=== PATIENT | female | born 1975 | race Two or more races ===

== ENCOUNTER 2018-06-20 20:19 | Emergency (ER) | payer MEDICAID ==
[~2018-06-20] VITALS: Ht 154.9 cm; Wt 72.1 kg
[2018-06-20 20:30] VITALS: BP 124/70
[2018-06-20] MEDS ORDERED: LIDOCAINE /MPF 1% VIAL 5 ML VIAL ONE (20:44)
[2018-06-20] MEDS ORDERED: LIDOCAINE 2% 20 ML MDV ONE (20:45)
[2018-06-20] MEDS ORDERED: HYDROCODONE/APAP 10/325MG 1 EA TABLET ONE (20:55)
[2018-06-20] MEDS ORDERED: IBUPROFEN 600 MG TABLET PO ONE ×2 (20:55→21:00)
[2018-06-20] MEDS ORDERED: ONDANSETRON 4 MG TAB.RAPDIS ONE (20:55)
[2018-06-20] MEDS ORDERED: HYDROCODONE/APAP 10/325MG 1 EA TABLET PO ONE (21:00)
[2018-06-20] MEDS ORDERED: ONDANSETRON 4 MG TAB.RAPDIS SL ONE (21:00)
[2018-06-20] MEDS ORDERED: LIDOCAINE 1% INJ 50 ML MDV IJ ONE ×2 (21:00→21:12)
--- NOTE | 2018-06-20 22:08 | NUR ---
Patient discharged to home in stable condition. Written and verbal after care instructions given. Patient verbalizes understanding of instruction.
== END 2018-06-20 22:09 | disposition home or self-care (01) ==
LOC: ER 20:21
DX: L60.0 Ingrowing nail (principal); L03.115 Cellulitis of right lower limb
CPT/HCPCS: 11765; 99284; A4606; A6402; J3490 ×3; Q0162; Z7610

== ENCOUNTER 2018-06-22 20:49 | Emergency (ER) | payer MEDICAID ==
[~2018-06-22] VITALS: Ht 152.4 cm; Wt 72.1 kg
[2018-06-22 22:19] VITALS: BP 132/92
== END 2018-06-22 22:57 | disposition home or self-care (01) ==
LOC: ER 20:51
DX: L03.031 Cellulitis of right toe (principal)
CPT/HCPCS: 99282; A4606 ×2; Z7610 ×2; Z7502

== ENCOUNTER 2019-04-10 22:45 | Emergency (ER) | payer MEDICAID ==
[~2019-04-10] VITALS: Ht 154.9 cm; Wt 72.6 kg
[2019-04-10 23:03] VITALS: BP 132/99
== END 2019-04-10 23:55 | disposition home or self-care (01) ==
LOC: ER 22:52
DX: L60.0 Ingrowing nail (principal)

== ENCOUNTER 2019-04-16 21:32 | Emergency (ER) | payer MEDICAID ==
[~2019-04-16] VITALS: Ht 154.9 cm; Wt 72.6 kg
--- NOTE | 2019-04-16 23:15 | NUR ---
PT PRESENTED TO THE ER WITH A C/O LEFT FOOT GREAT TOE INJURY/PAIN. PT WAS SEEN THE OTHER DAY AND IS ON ANTIBIOTICS, BUT THE PAIN IS WORSE AND PT IS UNABLE TO BEAR THE PAIN. PT AMBULATED TO ER 13 WITH A SLOW STEADY GAIT.
[2019-04-16] MEDS ORDERED: LIDOCAINE HCL/MPF 1% 30 ML VIAL IJ ONE (23:57)
[2019-04-17] MEDS ORDERED: LIDOCAINE HCL/PF 1% 30 ML VIAL TP ONE
--- NOTE | 2019-04-17 01:20 | NUR ---
TOENAIL REMOVAL IN PROGRESS AT THE BEDSIDE.
--- NOTE | 2019-04-17 02:15 | NUR ---
GREAT TOE WRAPPED WITH NON ADHERENT DRSG, KERLEX, AND BURN NET.
--- NOTE | 2019-04-17 02:30 | NUR ---
Patient discharged to home in stable condition. Written and verbal after care instructions given. Patient verbalizes understanding of instruction. PT WAS TOLD TO F/U WITH THE BLANKER PRESS OPERATOR FOR THE REMOVAL OF THE COMPLETE TOENAIL.
--- NOTE | 2019-04-17 02:42 | NUR ---
PT AMBULATED OUT WITH GRIPPER SOCKS ON.
[2019-04-17 02:43] VITALS: BP 128/71
== END 2019-04-17 02:38 | disposition home or self-care (01) ==
LOC: ER 21:34
DX: L60.0 Ingrowing nail (principal); B35.1 Tinea unguium
CPT/HCPCS: 11730; 99283; A6402; J3490

== ENCOUNTER 2019-08-27 22:52 | Emergency (ER) | payer MEDICAID ==
[~2019-08-27] VITALS: Ht 157.5 cm; Wt 71.2 kg
[2019-08-27 23:08] VITALS: BP 144/67
--- NOTE | 2019-08-27 23:08 | NUR ---
PT C/C "R MIDDLE FINGER PAIN X3 MONTHS, WORSE TODAY" +REDNESS NOTED -SENSORY LOSS. PT AOX4. NAD NOTED. RESP EVEN AND UNLABORED. PT ON MONITOR IN BED 1. WILL CONTINUE TO MONITOR.
--- NOTE | 2019-08-27 23:29 | NUR ---
RADIOLOGY AT BEDSIDE FOR XRAY
[2019-08-27] MEDS ORDERED: IBUPROFEN 600 MG TABLET PO ONE ×2 (23:30)
== END 2019-08-28 00:37 | disposition home or self-care (01) ==
LOC: ER 22:52
DX: M79.644 Pain in right finger(s) (principal)
CPT/HCPCS: 73140-TC

== ENCOUNTER 2020-04-14 20:29 | Emergency (ER) | payer MEDICAID ==
[~2020-04-14] VITALS: Ht 154.9 cm; Wt 59.9 kg
[2020-04-14 20:38] VITALS: BP 161/92
--- NOTE | 2020-04-14 21:10 | NUR ---
TECH AT BEDSIDE FOR EYE IRRIGATION VIA CHACHA LENS.
--- NOTE | 2020-04-14 21:12 | NUR ---
PATIENT CAME TO ER BED 1 C/O RIGHT EYE BURNING PAIN. PATIENT STATES THAT SHE ACCIDENTALLY SPLASHED SPICY SALSA INTO HER RIGHT EYE. SHE TRIED USING MILK WITH NO RELIEF. AAOX4. NO SOB. BREATHING EVENLY AND UNLABORED ON ROOM AIR.
[2020-04-14] MEDS ORDERED: FLUORESCEIN SODIUM OPHTH 1 EA STRIP ONE (21:37)
--- NOTE | 2020-04-14 22:05 | NUR ---
Patient discharged to home in stable condition. Written and verbal after care instructions given. Patient verbalizes understanding of instruction.
== END 2020-04-14 22:05 | disposition home or self-care (01) ==
LOC: ER 20:31
DX: T65.891A Toxic effect of other specified substances, accidental (unintentional), initial encounter (principal); Y92.89 Other specified places as the place of occurrence of the external cause

== ENCOUNTER 2021-01-31 23:50 | Emergency (ER) | payer MEDICAID ==
[~2021-01-31] VITALS: Ht 154.9 cm; Wt 72.6 kg
--- NOTE | 2021-02-01 00:01 | NUR ---
PT AAOX4. BIBSELF C/O BACK PAIN FOR THE PAST WEEK. PLACED IN BED 10, AWAITING ER MD FOR EVAL AND ORDERS.
[2021-02-01] MEDS ORDERED: KETOROLAC TROMETHAMINE INJ 60 MG/2 ML VIAL IM ONE ×2 (00:30→00:34)
[2021-02-01 00:46] LABS: BILIRUBIN,URINE NEGATIVE (NEGATIVE); COLOR,URINE YELLOW (YELLOW); LEUKOCYTE ESTERASE ,URINE NEGATIVE (NEGATIVE); NITRITE, URINE NEGATIVE (NEGATIVE); PROTEIN,URINE NEGATIVE (NEGATIVE); UGLUCOSE NEGATIVE (NEGATIVE); UROBILINOGEN,URINE 0.2 EU/dL (0.2)
[2021-02-01] MEDS ORDERED: IBUP-1957 PO (01:27)
[2021-02-01 01:59] VITALS: BP 137/79
--- NOTE | 2021-02-01 01:59 | NUR ---
Patient discharged to home in stable condition. Written and verbal after care instructions given. Patient verbalizes understanding of instruction and RX.
== END 2021-02-01 01:59 | disposition home or self-care (01) ==
LOC: ER 23:52
DX: M54.5 Low back pain (principal); R42 Dizziness and giddiness
CPT/HCPCS: 72131; 81003; 84703; 96372; 99284; J1885

== ENCOUNTER 2021-08-16 23:42 | Emergency (ER) | payer MEDICAID ==
[~2021-08-16] VITALS: Ht 154.9 cm; Wt 72.6 kg
[~2021-08-16 23:42] MED LIST: IBUP-1957 PO
--- NOTE | 2021-08-17 | NUR ---
PT BIBS W/ DAUGHTER. R EYE PAIN X 30 MIN ETHYLENE COMPRESSOR OPERATOR SHARP 9/10. PT ALERT AND ORIENTED X3. PT AMBULATORY WITH NON LABORED BREATHING.
[2021-08-17] MEDS ORDERED: FLUORESCEIN SODIUM OPHTH 1 EA STRIP ONE (00:18)
[2021-08-17] MEDS ORDERED: POLY10DR OP (01:08)
[2021-08-17 01:29] VITALS: BP 144/80
--- NOTE | 2021-08-17 01:29 | NUR ---
Patient discharged to home in stable condition. Written and verbal after care instructions given. Patient verbalizes understanding of instruction.
== END 2021-08-17 01:29 | disposition home or self-care (01) ==
LOC: ER 23:44
DX: S05.01XA Injury of conjunctiva and corneal abrasion without foreign body, right eye, initial encounter (principal); X58.XXXA Exposure to other specified factors, initial encounter; Y93.89 Activity, other specified; Y92.89 Other specified places as the place of occurrence of the external cause; Y99.8 Other external cause status

== ENCOUNTER 2021-10-28 01:52 | Emergency (ER) | payer MEDICAID ==
[~2021-10-28] VITALS: Ht 154.9 cm; Wt 74.8 kg
[~2021-10-28 01:52] MED LIST changes: +POLY10DR OP
--- NOTE | 2021-10-28 02:06 | NUR ---
PATIENT BIBSELF C/O COUGH, HOLDER WITH FEVER FOR THE PAST WEEK. PATIENT IS A/O X 4, RR EVEN AND UNLABORED, NO SOB NOTED. PATIENT CONNECTED TO CARDIAC AND POX MONITOR.
[2021-10-28] MEDS ORDERED: ACETAMINOPHEN ES 500 MG TABLET ONE (02:09)
--- NOTE | 2021-10-28 02:12 | NUR ---
COVID SWAB COLLECTED AND SENT TO LAB
[2021-10-28] MEDS ORDERED: ACETAMINOPHEN 325 MG TABLET PO ONE (02:30)
--- NOTE | 2021-10-28 02:46 | NUR ---
LAB CALLED PT IS COVID POSITIVE. MD BEGUM AWARE
[2021-10-28] MEDS ORDERED: AZIT250T13 PO (03:03)
[2021-10-28] MEDS ORDERED: AZITHROMYCIN 250 MG TABLET ONE (03:05)
--- NOTE | 2021-10-28 03:13 | NUR ---
Patient discharged to home in stable condition. Rx and Written and verbal after care instructions given. Patient verbalizes understanding of instruction.
[2021-10-28 03:14] VITALS: BP 150/80
[2021-10-28] MEDS ORDERED: AZITHROMYCIN 250 MG TABLET PO ONE (03:30)
== END 2021-10-28 03:14 | disposition home or self-care (01) ==
LOC: ER 01:53
DX: U07.1 COVID-19 (principal); J12.82 Pneumonia due to coronavirus disease 2019; R03.0 Elevated blood-pressure reading, without diagnosis of hypertension
CPT/HCPCS: 71045; 87426; 99284; C9803

== ENCOUNTER 2022-04-23 15:51 | Emergency (ER) | payer MEDICAID ==
[~2022-04-23] VITALS: Ht 154.9 cm; Wt 72.6 kg
[~2022-04-23 15:51] MED LIST changes: +AZIT250T13 PO
[2022-04-23 15:58] VITALS: BP 150/81
[2022-04-23] MEDS ORDERED: CIPR5DRO EACHEYE (16:46)
--- NOTE | 2022-04-23 16:57 | NUR ---
Patient discharged to home in stable condition. Written and verbal after care instructions given. Patient verbalizes understanding of instruction.
== END 2022-04-23 16:57 | disposition home or self-care (01) ==
LOC: ER 16:17
DX: H10.9 Unspecified conjunctivitis (principal); E03.9 Hypothyroidism, unspecified; Z86.69 Personal history of other diseases of the nervous system and sense organs; Z79.899 Other long term (current) drug therapy